=== PATIENT | male | born 1965 | race Caucasian/White ===

== ENCOUNTER 2016-11-30 17:25 | Emergency (ER) | payer OTHER ==
[~2016-11-30] VITALS: Ht 175.3 cm; Wt 74.8 kg
[2016-11-30] MEDS ORDERED: HYDROCODONE/APAP 5/325MG 1 EACH TABLET ONE (18:44)
[2016-11-30 18:51] VITALS: BP 125/80
[2016-11-30] MEDS ORDERED: HYDROCODONE/APAP 5/325MG 1 EACH TABLET PO ONE (19:00)
== END 2016-11-30 18:52 | disposition home or self-care (01) ==
LOC: ER 17:28
DX: S09.90XA Unspecified injury of head, initial encounter (principal); N20.0 Calculus of kidney; Z88.0 Allergy status to penicillin; F17.200 Nicotine dependence, unspecified, uncomplicated; W22.8XXA Striking against or struck by other objects, initial encounter; Y93.89 Activity, other specified; Y92.89 Other specified places as the place of occurrence of the external cause; Y99.8 Other external cause status
CPT/HCPCS: 70450; 99284; A4606; Z7610

== ENCOUNTER 2018-03-07 12:53 | Inpatient (IN) | payer OTHER ==
[~2018-03-07] VITALS: Ht 177.8 cm; Wt 76.2 kg
--- NOTE | 2018-03-07 13:10 | NUR ---
AAOX3, C/O SOB X2 WKS, NO IMPROVEMENT WITH ALB INH; N/V/D SINCE LAST NIGHT LOWER BACK PAIN, NO URINARY SYMPTOMS. RR IS EVEN AND UNLABORED WITH NAD NOTED. SKIN IS WARM AND NON DIAPHORETIC. AWAITING MD FOR EVAL.
[2018-03-07] MEDS ORDERED: ONDANSETRON HCL/PF 4 MG/2 ML VIAL IV STA (13:12)
[2018-03-07] MEDS ORDERED: IV NS 0.9% 1,000 ML BAG IV STA (13:12)
[2018-03-07] MEDS ORDERED: PANTOPRAZOLE 40 MG VIAL IV STA (13:12)
[2018-03-07] MEDS ORDERED: ONDANSETRON HCL/PF 4 MG/2 ML VIAL ONE (13:24)
[2018-03-07] MEDS ORDERED: PANTOPRAZOLE 40 MG VIAL ONE (13:24)
[2018-03-07] MEDS ORDERED: MORPHINE SULFATE INJ 4 MG/ML DISP.SYRIN ONE (13:24)
[2018-03-07 13:25] LABS: BASOPHILS # (AUTO) 0.6 /CMM (0.0-0.2); BASOPHILS % (AUTO) 3.4 % (0.0-2.0); HEMATOCRIT 48 % (39-51); HEMOGLOBIN 16.9 g/dL (13.5-17.5); LYMPHOCYTES # (AUTO) 1.6 /CMM (0.8-4.8); LYMPHOCYTES % (AUTO) 9.3 % (20.0-44.0); MEAN CORPUSCULAR HGB CONC 35 g/dl (31.0-36.0); MEAN CORPUSCULAR VOLUME 94 fL (80-96); MONOCYTES # (AUTO) 0.6 /CMM (0.1-1.30); MONOCYTES % (AUTO) 3.4 % (2.0-12.0); NEUTROPHILS # (AUTO) 14.5 /CMM (1.8-8.9); NEUTROPHILS % (AUTO) 83.9 % (43.0-81.0); PLATELET COUNT (AUTO) 593 /CMM (150-450); RDW COEFFICIENT OF VARIATION 12.6 (11.5-15.0); RED BLOOD CELL COUNT(AUTO) 5.16 MIL/uL (4.5-6.0); WHITE BLOOD COUNT (AUTO) 17.3 K/uL (4.3-11.0)
[2018-03-07] MEDS ORDERED: MORPHINE SULFATE INJ 2 MG/ML DISP.SYRIN IV ONE (13:30)
[2018-03-07] MEDS ORDERED: ALBUTEROL FS 2.5 MG/3 ML VIAL.NEB IH ONE (13:30)
[2018-03-07 13:38] LABS: CALCIUM, SERUM 11.5 mg/dL (8.5-10.1); CARBON DIOXIDE 21 mmol/L (21-32); CHLORIDE 104 mmol/L (98-107); CREATININE 1.3 mg/dL (0.6-1.3); GLUCOSE 159 mg/dL (74-106); POTASSIUM 4.7 mmol/L (3.5-5.1); SODIUM SERUM 138 mmol/L (136-145); UREA NITROGEN, BLOOD 28 mg/dL (7-18)
[2018-03-07 13:44] LABS: ALANINE AMINOTRANSFERASE 15 U/L (12-78); ALBUMIN 4.1 g/dL (3.4-5.0); ALKALINE PHOSPHATASE 121 U/L (46-116); ASPARTATE AMINOTRANSFERASE 12 U/L (15-37); BILIRUBIN,TOTAL 0.2 mg/dL (0.2-1.0); LIPASE 278 U/L (73-393)
[2018-03-07 13:45] LABS: TROPONIN I < 0.017 ng/mL (0.00-0.056)
[2018-03-07] MEDS ORDERED: ALBUTEROL FS 2.5 MG/3 ML VIAL.NEB ONE (13:51)
[2018-03-07] MEDS ORDERED: CIPROFLOXACIN IV RTU 400 MG in PREMIX 1 EA IV STA (14:48)
[2018-03-07] MEDS ORDERED: FLAGYL/NS RTU 500 MG/100 ML PIGGYBACK IV STA (14:48)
[2018-03-07 14:58] LABS: BILIRUBIN,URINE SMALL (NEGATIVE); BLOOD, URINE Trace-intact Ery/uL (NEGATIVE); KETONES,URINE Negative (NEGATIVE); LEUKOCYTE ESTERASE ,URINE Negative (NEGATIVE); NITRITE, URINE Negative (NEGATIVE); PH,URINE 5.5 (5.0-8.0); PROTEIN,URINE 100 mg/dl (NEGATIVE); UGLUCOSE Negative (NEGATIVE); UROBILINOGEN,URINE 0.2 EU/dL (0.2)
[2018-03-07] MEDS ORDERED: METRONIDAZOLE 500MG/ NS 100ML 100 ML IV ONE (14:58)
[2018-03-07] MEDS ORDERED: CIPROFLOXACIN IV RTU 200 ML IV ONE (14:59)
[2018-03-07 15:00] LABS: APPEARANCE,URINE Slightly Hazy (CLEAR)
[2018-03-07 15:01] LABS: COLOR,URINE Dark Yellow (YELLOW)
[2018-03-07 15:06] LABS: BACTERIA,URINE None seen /HPF (None Seen); MUCUS,URINE Few /LPF (None Seen); SQUAMOUS EPITHELIAL CELL,UR Few /HPF (None Seen)
[2018-03-07] MEDS ORDERED: ALBU18HF2 IH (15:42)
--- NOTE | 2018-03-07 16:00 | NUR ---
CALLED NURSE FRANCES FOR MED-SURG BED
--- NOTE | 2018-03-07 16:34 | NUR ---
PAGED EPIC COLLAR STAY FUSER TENDER - MIRROR MAKER SALVADOR ROCHA - FOR PANEL
--- NOTE | 2018-03-07 16:36 | NUR ---
319-[address] [facility]
--- NOTE | 2018-03-07 17:13 | NUR ---
REPORT GIVEN TO RUBÉN SKY FOR SILVERIO.
[2018-03-07 17:30] VITALS: BP 111/74
[2018-03-07] MEDS ORDERED: MAGNESIUM HYDROXIDE 30 ML UDC PO PRN (17:30)
[2018-03-07] MEDS ORDERED: MAG HYDROX/AL HYDROX/SIMETH 30 ML UDC PO PRN (17:30)
[2018-03-07] MEDS ORDERED: Z GUARD REMEDY 2 OZ OINT TP PRN (17:30)
[2018-03-07] MEDS ORDERED: ENOXAPARIN SODIUM 40 MG/0.4 ML DISP.SYRIN SQ SCH (17:30)
[2018-03-07] MEDS ORDERED: ACETAMINOPHEN 325 MG TABLET PO PRN (17:30)
[2018-03-07] MEDS ORDERED: MORPHINE SULFATE INJ 4 MG/ML DISP.SYRIN IV PRN (17:30)
--- NOTE | 2018-03-07 17:30 | NUR ---
RN INITIAL NOTES RECEIVED PATIENT FROM ER. PATIENT IS A/O X4, AMBULATORY, ABLE TO MAKE NEEDS KNOWN. DIAGNOSIS OF DIVERTICULITIS. NO ACUTE DISTRESS, NO SOB. COMPLAINS OF PAIN IN LOWER BACK 03/29, WILL ADMINISTER PAIN MEDS. WAITING FOR DR'S ORDER. KEPT PATIENT SAFE AND COMFORTABLE. PATIENT REFUSED TO WEAR GOWN AND REFUSED BODY CHECK FOR NOW SINCE FAMILY IS AT BEDSIDE, HE WILL CHANGE LATER TONIGHT HE SAID. PER PATIENT, HE HAS NO WOUNDS OR BRUISES. BED IN LOW/LOCKED POSITION, SIDERAILS UPX2, CALL LIGHT IN REACH. WILL CONTINUE TO MONITOR ACCORDINGLY.
[2018-03-07 17:52] VITALS: BP 111/74
--- NOTE | 2018-03-07 18:30 | NUR ---
RN NOTES SALVADOR ROCHA ON BEDSIDE TALKING TO PATIENT. NEW ORDERS NOTED AND CARRIED OUT.
--- NOTE | 2018-03-07 18:30 | NUR ---
RN NOTES PATIENT COMPLAINT OF PAIN AT LOWER BACK AND STOMACH 04/29. MORPHINE 1MG IV WAS ADMINISTERED ORDERED. ALSO COMPLAINED OF NAUSEA, ZOFRAN ADMINISTERED ORDERED.
--- NOTE | 2018-03-07 19:30 | NUR ---
RN CLOSING NOTES PATIENT IN STABLE CONDITION. ALL NEEDS ATTENDED AND PROVIDED. KEPT PATIENT SAFE AND COMFORTABLE. BED IN LOW/LOCKED POSITION, SIDERAILS UPX2, CALL LIGHT IN REACH. ENDORSED TO NIGHT RN FOR SILVERIO.
--- NOTE | 2018-03-07 19:30 | NUR ---
MS/RN OPENING NOTES PT RECEIVED AWAKE, LAYING IN BED. A/OX4. ON ROOM AIR, BREATHING EVEN AND UNLABORED. DENIES SOB, N/V AT THIS TIME. PAIN NOTED TO BE 5/10 TO LOWER BACK. IV TO RAC PATENT AND INTACT RUNNING IVF ORDERED. CLARIFIED ORDERS WITH SALVADOR ROCHA, SHE WILL CHANGE DIET ORDER FROM NPO TO CLEAR LIQUIDS, OKAY TO GIVE PO LEVAQUIN. IF PT CANNOT TOLERATE CLEAR LIQUID, KEEP NPO. PT AWARE. BED IN LOW/LOCKED POSITION WITH CALL LIGHT IN REACH. SIDE RAILS UPX2. FAMILY MEMBERS AT BEDSIDE. WILL CONTINUE TO MONITOR
[2018-03-07] MEDS: IV 1/2NS 1000 ML 1,000 ML IV PRN (19:50)
[2018-03-07] MEDS: ONDANSETRON HCL/PF 4 MG/2 ML VIAL IVP PRN (19:51)
[2018-03-07 20:00] VITALS: BP 113/91
[2018-03-07] MEDS: LEVOFLOXACIN (750 MG) 750 MG TABLET PO SCH (21:16)
[2018-03-07] MEDS: METRONIDAZOLE 500MG/ NS 100ML 500 MG in PREMIX 1 EA IV SCH (21:16)
--- NOTE | 2018-03-07 21:24 | NUR ---
PHOTOS OF RIGHT THUMB AND LEFT HAND TAKEN FOR SKIN INTEGRITY ASSESSMENT. PT REFUSING BODY CHECK AT THIS TIME. AWARE OF HOSPITAL PROTOCOL/POLICY. WILL TRY AGAIN LATER
[2018-03-07] MEDS ORDERED: IPRATROPIUM HALF ST 0.25 MG/1.25 ML VIAL.NEB NEB PRN (21:30)
--- NOTE | 2018-03-07 21:40 | NUR ---
MS/RN NOTES PT WITH ORDER FOR CT CHEST W CONTRAST. CONSENT SIGNED AND PLACED IN THE CHART. RADIOLOGY CALLED AND NOTED THAT PT'S CR=1.3, LIMIT CREATININE TO ADMINISTER CONTRAST IS 1.2. PER SALVADOR ROCHA RECHECK CREATININE IN AM, CONTINUE IVF.
[2018-03-07] MEDS: AZITHROMYCIN 250 MG TABLET PO SCH (21:46)
--- NOTE | 2018-03-08 02:39 | NUR ---
MS/RN NOTES PT C/O LOWER ABDOMINAL AND BACK PAIN 8/10 ACHING. ADMINISTERED PRN MORPHINE ORDERED. WILL MONITOR FOR EFFECTIVENESS
[2018-03-08] MEDS: METRONIDAZOLE 500MG/ NS 100ML 500 MG in PREMIX 1 EA IV SCH ×3 (04:00→21:06)
[2018-03-08] MEDS: IV 1/2NS 1000 ML 1,000 ML IV PRN ×2 (06:30→18:19)
[2018-03-08] MEDS: ONDANSETRON HCL/PF 4 MG/2 ML VIAL IVP PRN (06:35)
[2018-03-08 06:46] LABS: BASOPHILS % (AUTO) 0.2 % (0.0-2.0); EOSINOPHILS % (AUTO) 1.3 % (0.0-6.0); HEMATOCRIT 42 % (39-51); HEMOGLOBIN 14.1 g/dL (13.5-17.5); LYMPHOCYTES # (AUTO) 2.3 /CMM (0.8-4.8); LYMPHOCYTES % (AUTO) 21.4 % (20.0-44.0); MEAN CORPUSCULAR HGB CONC 33 g/dl (31.0-36.0); MEAN CORPUSCULAR VOLUME 98 fL (80-96); MONOCYTES # (AUTO) 0.6 /CMM (0.1-1.30); MONOCYTES % (AUTO) 5.6 % (2.0-12.0); NEUTROPHILS # (AUTO) 7.7 /CMM (1.8-8.9); NEUTROPHILS % (AUTO) 71.5 % (43.0-81.0); PLATELET COUNT (AUTO) 475 /CMM (150-450); RDW COEFFICIENT OF VARIATION 13.6 (11.5-15.0); RED BLOOD CELL COUNT(AUTO) 4.32 MIL/uL (4.5-6.0); WHITE BLOOD COUNT (AUTO) 10.8 K/uL (4.3-11.0)
--- NOTE | 2018-03-08 06:54 | NUR ---
MS/RN CLOSING NOTES PT AWAKE, RESTING COMFORTABLY IN BED. A/OX4. ON ROOM AIR, BREATHING EVEN AND UNLABORED. DENIES SOB AND PAIN CONTROLLED POST ADMINISTRATION OF MORPHINE IV. PT TOLERATED CLEAR LIQUIDS FOR DURATION OF THE SHIFT, UNTIL PT STARTED TO FEEL NAUSEATED THIS AM. ADMINISTERED PRN ZOFRAN ORDERED. IV TO RAC PATENT AND INTACT RUNNING IVF ORDERED. SPUTUM SPECIMEN SENT TO LAB. PER LAC CAMILLE, NOT EVEN SPUTUM, NEED TO COLLECT MORE. NO BM DURING SHIFT, HAT IN TOILET FOR STOOL COLLECTION. NO SIGNIFICANT CHANGES OVERNIGHT. KEPT PT COMFORTABLE. ALL NEEDS MET. BED IN LOW/LOCKED POSITION WITH CALL LIGHT IN REACH. SIDE RAILS UPX2. WILL ENDORSE TO DAY SHIFT RN SILVERIO.
[2018-03-08 06:59] LABS: CALCIUM, SERUM 8.4 mg/dL (8.5-10.1); CREATININE 1.1 mg/dL (0.6-1.3); PHOSPHORUS 3.7 mg/dL (2.5-4.9); POTASSIUM 4.9 mmol/L (3.5-5.1)
[2018-03-08 07:51] LABS: THYROID STIMULATING HORMONE 0.806 uIU/mL (0.358-3.74)
[2018-03-08 08:00] VITALS: BP 91/62
[2018-03-08] MEDS: NICOTINE PATCH (14MG) 14 MG PATCH.TD24 TD SCH (08:28)
[2018-03-08] MEDS: PANTOPRAZOLE 40 MG VIAL IV SCH (08:57)
--- NOTE | 2018-03-08 09:00 | NUR ---
m/s tandem mill sticker: md visit dr. pickard at bedside and aware of blood pressure on the 90's systolic with verbal order to increase ivf to 125ml/hr. order read back and carried out. ivf rate increase to 125ml as ordered. pt for ct chest today. kept npo since 0800. pt verbalized understanding. instructed to call for assistance. will continue to monitor.
[2018-03-08] MEDS ORDERED: IOHEXOL-300 100 ML VIAL IV ONE (10:39)
--- NOTE | 2018-03-08 10:40 | NUR ---
m/s sharepoint manager: notes taken to ct via w/c accompanied by tech.
--- NOTE | 2018-03-08 10:50 | NUR ---
m/s nozzleman: notes back from rad dept. instructed to call for assistance. will continue to monitor.
--- NOTE | 2018-03-08 13:15 | NUR ---
m/s metaphysicist: notes ct chest resulted: 1. Mild pulmonary emphysema, along with findings of chronic bronchitis. 2. No suspicious pulmonary nodule, mass, lymphadenopathy, or acute infiltrate is identified. left message to dr. pickard.
--- NOTE | 2018-03-08 13:30 | NUR ---
m/s playground attendant: notes dr. pickard called back with no new order. pt made aware and educated pt on smoking cessation. at bedside. informed pt he has breathing as needed. pt verbalized understanding.
--- NOTE | 2018-03-08 13:34 | NUR ---
m/s wine fermenter: notes c/o tooth ache, medicated with tylenol 650mg. instructed to call for assistance.
[2018-03-08] MEDS: ALBUTEROL FS 2.5 MG/0.5 ML VIAL.NEB NEB PRN (13:45)
--- NOTE | 2018-03-08 15:00 | NUR ---
m/s hydraulic press servicer: notes pt still c/o tooth ache. ice pack provided. will continue to monitor.
[2018-03-08 16:08] VITALS: BP 90/69
--- NOTE | 2018-03-08 17:00 | NUR ---
m/s applied marine physics professor: notes pt still has tooth ache, left message to dr. pickard.
--- NOTE | 2018-03-08 18:10 | NUR ---
m/s grain miller helper: notes dr. pickard called back with order of motrin 400mg po q 6hrs. order read back and carried out.
[2018-03-08] MEDS ORDERED: IBUPROFEN 400 MG TABLET PO PRN (18:30)
--- NOTE | 2018-03-08 19:30 | NUR ---
MSRN FULLY AWAKE, VISITORS AT BEDSIDE. OCC DRY COUGH, NO SOB. ON RA, SATURATING 97%. AWARE OF GI CONSULT DR. MCKENZIE , POSS TONIGHT TO SEE PATIENT. NO NEEDS OF THIS TIME. SMOKING CESSATION DISCUSSED, APPEARS TO UNDERSTAND. TREATMENT PLAN AND MEDICATION REGIMEN DISCUSSED, APPEARS TO UNDERSTAND. PRESENT IVF INFUSING WELL AT 125CC/HR. NO NAUSEA/VOMITTING, STATES ABLE TO TOLERATE CLEAR LIQUIDS. EAGER TO EAT SOLID FOOD, REMINDED DR MCKENZIE NEED TO SEE HIM FIRST. SAFETY PRECAUTIONS EMPHASIZED, REMINDED TO CALL STAFF FOR ANY FURTHER ASSISTANCE OR DISCOMFORTS. CLOSELY WATCHED.
[2018-03-08 20:00] VITALS: BP 102/76
[2018-03-08] MEDS: LEVOFLOXACIN (750 MG) 750 MG TABLET PO SCH (21:06)
[2018-03-08] MEDS: AZITHROMYCIN 250 MG TABLET PO SCH (22:19)
--- NOTE | 2018-03-08 22:40 | NUR ---
MSRN STILL PENDING GI CONSULT. REMAINS ON CLEAR LIQ ONLY. SPUTUM SENT , ABD PAIN TOLERABLE. NO N/V.
[2018-03-09] MEDS: IV 1/2NS 1000 ML 1,000 ML IV PRN ×2 (04:45→18:31)
[2018-03-09] MEDS: METRONIDAZOLE 500MG/ NS 100ML 500 MG in PREMIX 1 EA IV SCH ×3 (04:46→19:53)
--- NOTE | 2018-03-09 06:32 | NUR ---
MSRN SLEEPING , EASILY AWAKENED , NO COMPLAINTS MADE. NEED TO FOLLOW UP GI CONSULT.
--- NOTE | 2018-03-09 07:23 | NUR ---
MS RN OPENING NOTES RECEIVED PT FROM NIGHTSHIFT NURSE IN STABLE CONDITION. PT IS A/O X4. NO SOB OR ACUTE SIGNS OF DISTRESS NOTED. BREATHING IS EVEN AND UNLABORED. PT IS ON RA AND SATING WELL. HE DENIES ANY PAIN ALONG WITH N/V AT THIS TIME. IV TP RIGHT HAND NOTED TO BE PATENT AND INTACT. NO REDNESS OR SIGNS OF INFILTRATION NOTED. BED IN LOW LOCKED POSITION, SIDE RAILS UP X2, CALL LIGHT WITHIN REACH. WILL CONTINUE TO MONITOR
[2018-03-09 07:31] LABS: BASOPHILS % (AUTO) 0.5 % (0.0-2.0); HEMATOCRIT 40 % (39-51); HEMOGLOBIN 13.5 g/dL (13.5-17.5); LYMPHOCYTES # (AUTO) 2.1 /CMM (0.8-4.8); LYMPHOCYTES % (AUTO) 27.5 % (20.0-44.0); MEAN CORPUSCULAR HGB CONC 34 g/dl (31.0-36.0); MEAN CORPUSCULAR VOLUME 98 fL (80-96); MONOCYTES # (AUTO) 0.5 /CMM (0.1-1.30); MONOCYTES % (AUTO) 6.7 % (2.0-12.0); NEUTROPHILS # (AUTO) 4.7 /CMM (1.8-8.9); NEUTROPHILS % (AUTO) 63.3 % (43.0-81.0); PLATELET COUNT (AUTO) 409 /CMM (150-450); RDW COEFFICIENT OF VARIATION 13.3 (11.5-15.0); RED BLOOD CELL COUNT(AUTO) 4.05 MIL/uL (4.5-6.0); WHITE BLOOD COUNT (AUTO) 7.5 K/uL (4.3-11.0)
[2018-03-09 07:35] LABS: CALCIUM, SERUM 8.4 mg/dL (8.5-10.1); POTASSIUM 4.3 mmol/L (3.5-5.1)
[2018-03-09 08:00] VITALS: BP 101/67
[2018-03-09] MEDS: NICOTINE PATCH (14MG) 14 MG PATCH.TD24 TD SCH (08:16)
[2018-03-09] MEDS: PANTOPRAZOLE 40 MG VIAL IV SCH (08:16)
[2018-03-09] MEDS: ALBUTEROL FS 2.5 MG/0.5 ML VIAL.NEB NEB PRN (15:21)
[2018-03-09 16:00] VITALS: BP 93/68
--- NOTE | 2018-03-09 18:39 | NUR ---
MS RN CLOSING NOTES PT REMAINS IN STABLE CONDITION. ALL NEEDS WERE MET DURING SHIFT AND ORDERS CARRIED OUT ACCORDINGLY. ALL DUE MEDS WERE GIVEN. PT ABLE TO TOLERATE REGULAR DIET WELL. NO COMPLAINTS OF PAIN, NAUSEA, OR VOMITING, SAFETY MEASURES REMAIN IN PLACE. WILL ENDORSE TO NIGHTSHIFT NURSE FOR SILVERIO
--- NOTE | 2018-03-09 19:34 | NUR ---
RN MS OPENING NOTES RECEIVED PATIENT IN BED, AWAKE ALERT AND ORIENTED X4, ABLE TO MAKE NEEDS KNOWN, RESPIRATIONS EVEN AN UNLABORED WITH EQUAL RISE AND FALL OF CHEST, NO DISTRESS PRESENT, DENIES ANY PAIN OR DISCOMFORT AT THIS TIME, RIGHT HAND #22 GAUGE INTACT AND PATENT, NO REDNESS ,NO INFILTRATION PRESENT, IVF FLUIDS RUNNING ORDERED. ASSISTED TO BATHROOM STANDBY ASSIST ,AMBULATORY WITH STEADY GAIT. ORIENTED TO STAFF AND CALL LIGHT, CALL LIGHT KEPT WITHIN REACH , PLAN OF CARE DISCUSSED, FLUIDS OFFERED, ALL NEEDS ATTENDED AT THIS TIME,REMAINS COMFORTABLE , WILL CONTINUE TO MONITOR.
[2018-03-09] MEDS: LEVOFLOXACIN (750 MG) 750 MG TABLET PO SCH (19:51)
[2018-03-09 20:00] VITALS: BP 100/69
[2018-03-10] MEDS: ONDANSETRON HCL/PF 4 MG/2 ML VIAL IVP PRN (00:32)
[2018-03-10] MEDS: METRONIDAZOLE 500MG/ NS 100ML 500 MG in PREMIX 1 EA IV SCH (04:45)
[2018-03-10] MEDS: IV 1/2NS 1000 ML 1,000 ML IV PRN (04:46)
--- NOTE | 2018-03-10 06:26 | NUR ---
RN MS CLOSING NOTES PATIENT IN BED, SLEEPING BUT EASILY AROUSABLE ALERT AND ORIENTED X4, ABLE TO MAKE NEEDS KNOWN, RESPIRATIONS EVEN AN UNLABORED WITH EQUAL RISE AND FALL OF CHEST, NO DISTRESS PRESENT, DENIES ANY PAIN OR DISCOMFORT AT THIS TIME, RIGHT HAND #22 GAUGE INTACT AND PATENT, NO REDNESS ,NO INFILTRATION PRESENT, IVF FLUIDS RUNNING ORDERED. URINAL AT BEDSIDE ,AMBULATORY WITH STEADY GAIT. DENIES ANY STOMACH PAIN AT THIS TIME, NO NAUSEA. CALL LIGHT KEPT WITHIN REACH , ALL NEEDS ATTENDED AT THIS TIME,REMAINS COMFORTABLE , WILL CONTINUE TO MONITOR AND ENDORSE TO NEXT SHIFT.
[2018-03-10 06:37] LABS: BASOPHILS # (AUTO) 0.1 /CMM (0.0-0.2); BASOPHILS % (AUTO) 0.7 % (0.0-2.0); EOSINOPHILS % (AUTO) 1.9 % (0.0-6.0); HEMATOCRIT 40 % (39-51); HEMOGLOBIN 13.4 g/dL (13.5-17.5); LYMPHOCYTES # (AUTO) 1.9 /CMM (0.8-4.8); LYMPHOCYTES % (AUTO) 24.5 % (20.0-44.0); MEAN CORPUSCULAR HGB CONC 34 g/dl (31.0-36.0); MEAN CORPUSCULAR VOLUME 98 fL (80-96); MONOCYTES # (AUTO) 0.5 /CMM (0.1-1.30); MONOCYTES % (AUTO) 6.5 % (2.0-12.0); NEUTROPHILS # (AUTO) 5.3 /CMM (1.8-8.9); NEUTROPHILS % (AUTO) 66.4 % (43.0-81.0); PLATELET COUNT (AUTO) 426 /CMM (150-450); RED BLOOD CELL COUNT(AUTO) 4.06 MIL/uL (4.5-6.0)
[2018-03-10 06:46] LABS: CALCIUM, SERUM 8.2 mg/dL (8.5-10.1); POTASSIUM 4.4 mmol/L (3.5-5.1)
--- NOTE | 2018-03-10 07:15 | NUR ---
MS RN OPENING NOTE RECEIVED PATIENT IN BED, SLEEPING, EASILY AROUSED WITH VERBAL STIMULI. ORIENTED X4. ON ROOM AIR, TOLERATING WELL. RESPIRATIONS EVEN AND UNLABORED, IN NO APPARENT DISTRESS OR DISCOMFORT AT THIS TIME. PATIENT IS ABLE TO COMMUNICATE NEEDS. CONTINENT, ABLE TO AMBULATE TO THE BATHROOM WITH STEADY GAIT. PATIENT WITH RIGHT HAND 22G, IVC, WITH FLUIDS RUNNING AT 125ML/HR, NO SIGN OF INFILTRATION. PATIENT KEPT CLEAN AND COMFORTABLE. ALL NEEDS ATTENDED, SAFETY MEASURES IN PLACE, BED IN LOW LOCKED POSITION, SIDE RAILS UP X2, CALL LIGHT WITHIN EASY REACH. WILL CONTINUE TO MONITOR.
[2018-03-10 08:00] VITALS: BP 97/64
[2018-03-10] MEDS: NICOTINE PATCH (14MG) 14 MG PATCH.TD24 TD SCH (08:38)
[2018-03-10] MEDS: PANTOPRAZOLE 40 MG VIAL IV SCH (08:39)
[2018-03-10] MEDS ORDERED: LEVO750T21 PO (10:06)
[2018-03-10] MEDS ORDERED: METRONIDAZOLE 500 MG TABLET PO SCH (13:00)
--- NOTE | 2018-03-10 19:57 | NUR ---
MS PRODUCT DEVELOPMENT TECHNICIAN NOTE DISCHARGE ORDER RECEIVED. EXITCARE PREPARED AND EXPLAINED TO THE PATIENT. ALL DS INSTRUCTIONS AND DOCTORS ORDERS GIVEN, PATIENT VERBALIZED UNDERSTANDING OF DC INSTRUCTIONS AND SIGNED THE PAPERWORK. PATIENT MEDICAL RECORDS WAS PROVIDED, BELONGINGS CHECKED AND ACCOUNTED FOR. IVC REMOVED, TIP IS INTACT. NO NEW SKIN IMPAIRMENTS PRESENT. PICTURES OF PREVIOUS SKIN IMPAIRMENTS AVAILABLE AT ADMISSION, WAS TAKEN AND PLACED IN A CHART. VITAL SIGNS TAKEN AND RECORDED. PATIENT IS MEDICALLY STABLE. IN NO APPARENT DISTRESS OR DISCOMFORT AT THIS TIME. PATIENT WAS ESCORTED HOME WITH HIS . LEFT THE UNIT WITH ASSISTANCE OF ADA MOLINA AT 1400.
== END 2018-03-10 15:00 | disposition home or self-care (01) | DRG 244 ==
LOC: ER 12:57 → MED 16:48
PROVIDERS: ADMIT Registered Nurse; ATTEND Registered Nurse
DX: K57.32 Diverticulitis of large intestine without perforation or abscess without bleeding (principal); J43.9 Emphysema, unspecified; J20.9 Acute bronchitis, unspecified; K56.7 Ileus, unspecified; E86.0 Dehydration; N20.0 Calculus of kidney; J42 Unspecified chronic bronchitis; F17.210 Nicotine dependence, cigarettes, uncomplicated; D72.829 Elevated white blood cell count, unspecified; E86.9 Volume depletion, unspecified; R91.1 Solitary pulmonary nodule; D47.3 Essential (hemorrhagic) thrombocythemia
CPT/HCPCS: 36415; 71045-TC; 71260-TC; 80048-TC; 80053-TC; 80061-TC; 81000-TC; 83690-TC; 83735-TC; 84100-TC; 84443-TC; 84484-TC; 85025-TC; 87040-TC; 87070-TC; 87081-TC; A4216; A4606; C9113; J0744; J2270; J2405; J3490; J7030; Q9967; Z7610

== ENCOUNTER 2022-08-09 18:55 | Emergency (ER) | payer OTHER ==
[~2022-08-09] VITALS: Ht 177.8 cm; Wt 83.9 kg
[~2022-08-09 18:55] MED LIST: ALBU18HF2 IH; LEVO750T21 PO
[2022-08-09 19:08] VITALS: BP 149/93
[2022-08-09] MEDS ORDERED: CLINDAMYCIN HCL 150 MG CAPSULE PO ONE (20:00)
[2022-08-09] MEDS ORDERED: CLINDAMYCIN HCL 150 MG CAPSULE ONE (20:02)
[2022-08-09] MEDS ORDERED: CLIN300C12 PO (20:03)
--- NOTE | 2022-08-09 20:10 | NUR ---
Patient discharged to home in stable condition. Written and verbal after care instructions given. Patient verbalizes understanding of instruction.
== END 2022-08-09 20:14 | disposition home or self-care (01) ==
LOC: ER 18:55
DX: J02.0 Streptococcal pharyngitis (principal); Z90.49 Acquired absence of other specified parts of digestive tract; F17.200 Nicotine dependence, unspecified, uncomplicated; Z88.0 Allergy status to penicillin; Z87.442 Personal history of urinary calculi